=== PATIENT | male | born 1995 | race Caucasian/White ===

== ENCOUNTER 2016-08-25 22:50 | Emergency (ER) | payer SELFPAY ==
[2016-08-26 00:07] VITALS: BP 141/79
== END 2016-08-26 00:07 | disposition home or self-care (01) ==
LOC: ED 22:50
DX: J02.9 Acute pharyngitis, unspecified (principal)
CPT/HCPCS: J1100

== ENCOUNTER 2016-12-15 09:50 | Emergency (ER) | payer MEDICAID ==
[~2016-12-15] VITALS: Ht 177.8 cm; Wt 128.5 kg
[2016-12-15 10:04] VITALS: BP 139/90
== END 2016-12-15 11:35 | disposition home or self-care (01) ==
LOC: ED 09:50
DX: M54.40 Lumbago with sciatica, unspecified side (principal); S01.01XD Laceration without foreign body of scalp, subsequent encounter; X58.XXXD Exposure to other specified factors, subsequent encounter; Y99.8 Other external cause status; Y92.89 Other specified places as the place of occurrence of the external cause

== ENCOUNTER 2017-07-03 11:02 | Emergency (ER) | payer SELFPAY ==
[~2017-07-03] VITALS: Ht 177.8 cm; Wt 119.7 kg
[2017-07-03 11:26] VITALS: Ht 177.8 cm; Wt 119.7 kg
[2017-07-03 14:51] VITALS: BP 130/90
[2017-07-05 05:49] LABS: RAPID PLASMA REAGIN Non Reactive (Non Reactive)
== END 2017-07-03 14:51 | disposition home or self-care (01) ==
LOC: ED 11:02
PROVIDERS: Emergency Medicine
DX: A60.00 Herpesviral infection of urogenital system, unspecified (principal); N39.0 Urinary tract infection, site not specified; Z20.2 Contact with and (suspected) exposure to infections with a predominantly sexual mode of transmission
CPT/HCPCS: 87491; 87591; J0696

== ENCOUNTER 2017-11-16 18:16 | Emergency (ER) | payer SELFPAY ==
[~2017-11-16] VITALS: Ht 177.8 cm; Wt 120.7 kg
[2017-11-16 18:28] VITALS: Ht 177.8 cm; Wt 120.7 kg
[2017-11-16 21:27] VITALS: BP 130/75
== END 2017-11-16 21:27 | disposition home or self-care (01) ==
LOC: ED 18:16
DX: J02.8 Acute pharyngitis due to other specified organisms (principal); I10 Essential (primary) hypertension
CPT/HCPCS: J0561; J1100; J1885

== ENCOUNTER 2020-02-13 12:52 | Emergency (ER) | payer OTHER ==
[~2020-02-13] VITALS: Ht 177.8 cm; Wt 125.2 kg
[2020-02-13 13:00] VITALS: Ht 177.8 cm; Wt 125.2 kg
[2020-02-13 14:18] VITALS: BP 143/92
== END 2020-02-13 14:18 | disposition home or self-care (01) ==
LOC: ED 12:52
DX: S39.012A Strain of muscle, fascia and tendon of lower back, initial encounter (principal); S29.9XXA Unspecified injury of thorax, initial encounter; V49.9XXA Car occupant (driver) (passenger) injured in unspecified traffic accident, initial encounter; Y93.89 Activity, other specified; Y92.89 Other specified places as the place of occurrence of the external cause; Y99.8 Other external cause status